=== PATIENT | male | born 1950 | race Caucasian/White ===

== ENCOUNTER 2017-07-31 11:24 | Inpatient (IN) ==
--- NOTE | 2017-07-31 12:22 | Orthopedic History & Physical ---
Date of Encounter: 07/31/17 Time of Encounter: 12:17 Assessment and Plan (1) Infection of shoulder Current visit: Yes Status: Acute The diagnosis and treatment plan were discussed with Vlad and his . His findings on his MRI and exam are concerning so we will admit him to the hospital for IV antibiotics and for emergent irrigation and debridement. I have spoken with infectious disease and they will see him in the hospital for antibiotic management. NPO currently. History of Present Illness Chief complaint: R shoulder infection HPI: Mr. Merino is a 67 year old male who had a right shoulder rotator cuff repair about 5 weeks ago. He was doing well up until 3 days ago when developed pain and swelling and erythema over the right shoulder anterior portal location. Findings were concerning for a shoulder abscess and so the wound was irrigated and debrided in the office. Cultures were taken and sent. Here for follow up today, wound continued to drain. The shoulder was first aspirated and then the patient was admitted for IV antibiotics and surgical management. MRI also performed today prior to surgery that showed findings concerning for septic joint. Patient denies any fevers, chills or constitutional symptoms. He has pain over the anterior portal site but denies any deep pain. Past Med Surg Social Fam HX - Past Medical History Medical history: other - Past Surgical History Surgical History: knee replacement, other - Social History Smoking Status: Current every day smoker Smokeless Tobacco Status: No Alcohol use: occasionally Drug use: none Medications and Allergies Meloxicam [Meloxicam] 15 mg PO DAILY 06/20/17 [History] 3 Allergy/AdvReac Type Severity Reaction Status Date / Time No Known Allergies Allergy Verified 06/20/17 07:31 All Systems Reviewed: A 10-system review of systems was performed and is negative for pertinent findings except as documented above in the HPI. Physical Exam - Constitutional General appearance IM: A&O X 3, no acute distress Exam: Consult Exam: Constitutional -Vitals reviewed -The patient is well developed and well nourished. -Mood is pleasant. -The patient is well groomed. Psychiatric -The patient is fully alert and oriented x 3. Respiratory: -Respiratory effort normal Abdomen: -Soft abdomen -Non tender -Non distended: Left upper extremity: -No deformities. The overlying skin is intact. No obvious signs of acute trauma. -No tenderness to palpation throughout. -No significant pain with passive motion of the shoulder, elbow, wrist, and fingers within the limits of the bed. -Able to make an "OK" sign, cross the index and long fingers, and extend the thumb. -Sensation grossly intact to light touch throughout the median, radial, and ulnar distributions. -Radial pulse is present; Fingers have good capillary refill. Right upper extremity: -Tenderness to palpation over the anterior portal site. Minimal surround erythema but with purulent drainage from the site. -No significant pain with passive short arc motion of the shoulder. -Able to make an "OK" sign, cross the index and long fingers, and extend the thumb. -Sensation grossly intact to light touch throughout the median, radial, and ulnar distributions. -Radial pulse is present; Fingers have good capillary refill. Left lower extremity: -No deformities. The overlying skin is intact. No obvious signs of acute trauma. -No tenderness to palpation throughout. -No pain with passive motion of the hip, knee, ankle, and toes within the limits of the bed. -No pain with axial loading of the thigh. -Able to dorsiflex and plantarflex the ankle and toes. -Sensation is grossly intact to light touch throughout the sural, saphenous, superficial peroneal, and deep peroneal distributions. -Toes have good capillary refill. Right lower extremity: -No deformities. The overlying skin is intact. No obvious signs of acute trauma. -No tenderness to palpation throughout. -No pain with passive motion of the hip, knee, ankle, and toes within the limits of the bed. -No pain with axial loading of the thigh. -Able to dorsiflex and plantarflex the ankle and toes. -Sensation is grossly intact to light touch throughout the sural, saphenous, superficial peroneal, and deep peroneal distributions. -Toes have good capillary refill. Results - Labs Labs: All other labs normal. - Diagnostic results Shoulder MRI: report reviewed, image reviewed (Findings concerning for septic joint with multiple areas of fluid loculation)
[2017-07-31] MEDS ORDERED: *HR* OxyCODONE Immed Rel 5 MG TABLET PO PRN ×3 (14:06→21:43)
[2017-07-31] MEDS ORDERED: traMADol 50 MG TABLET PO PRN ×2 (14:06→21:43)
[2017-07-31] MEDS ORDERED: *HR* HYDROcodone/Acet 5/325 mg TABLET PO PRN ×2 (14:06→21:43)
[2017-07-31] MEDS ORDERED: Naloxone 0.4 MG/ML INJ IVP PRN ×2 (14:06→21:43)
[2017-07-31] MEDS ORDERED: Acetaminophen 325 MG TABLET PO PRN ×2 (14:06→21:43)
[2017-07-31] MEDS ORDERED: 0.9 % Sodium Chloride 1,000 ML IVC SCH (14:15)
--- NOTE | 2017-07-31 15:05 | Infectious Disease Consult ---
Date of Encounter: 07/31/17 Time of Encounter: 14:59 Assessment and Plan (1) Septic arthritis of shoulder, right Status: Acute Assessment and plan: Location: Right shoulder. Causative organism unclear. Failed outpatient oral antibiotics. MRI of the right shoulder showed findings consistent with septic glenohumeral joint with possible pyomyositis/myositis and possible early osteomyelitis. Superficial wound cultures 07/29/17 is preliminarily negative. Status post right shoulder arthrocentesis 07/31/[address] Wilhelm in the office. 1 ml of fluid removed and sent for culture (aerobic and anaerobic). I called and spoke with the lab who states that since only 1ml was available, they will not be able to run cell count/differential on it. I spoke with Dr. Wilhelm who plans to take the patient to the OR tonight for washout of the joint. Clinically, the patient does not appear toxic. Check labs: CBC, BMP, ESR, and CRP. Check blood cultures x 2 sets now. Hold antibiotics for now until cultures are obtained intra-op. Recommend sending surgical cultures for aerobic and anaerobic cultures. Start Vancomycin IV post-op. Pharmacy to dose. Goal trough ~15. Start Cefepime 2 grams IV Q12H post-op. Duration of treatment depends on the clinical picture, but likely 6 weeks of IV antibiotics. Monitor renal function and for drug toxicity and dose-adjust antibiotics. Avoid the insertion of central venous access until blood cultures are negative x 48 hours. Qualifiers: Septic arthritis organism: due to unspecified organism Qualified Code(s): M00.9 - Pyogenic arthritis, unspecified (2) Status post rotator cuff repair Status: Acute Assessment and plan: Status post rotator cuff repair 06/20/[address] Wilhelm. Infectious Disease HPI - Data of Consult Patient: new to practice Consult date: 07/31/17 Requesting Physician: Yousuf Wilhelm MD Primary Care Provider: Manish Frausto, - Consult Narrative Reason for consult: Right shoulder infection History of present illness: Mr. Merino is a 67 year old male with no major medical problems. He was admitted to the hospital for right shoulder infection. We're consulted July 31 for antibiotic recommendations for right shoulder infection. Briefly, the patient is a 67-year-old male with past medical history as stated above. The patient sustained a fall back in May when he was hunting and had a rotator cuff repair. He was evaluated by Dr. Sahara Campbell for possible surgical intervention on June 17 and scheduled for surgery. On December 18, he underwent a right shoulder arthroscopic rotator cuff repair, right shoulder arthroscopic subacromial decompression, and right shoulder arthroscopic extensive debridement. Postoperatively, the patient did well until about 5 days ago when he noticed a knot at the incision site and there was some redness and warmth. He was evaluated by Dr. Sahara Campbell on the and there was noted be pus from the surgical site. He did bedside incision and drainage and obtained a culture which is currently pending. He started the patient on oral Keflex and Bactrim and instructed the patient come back to the office 2 days later. Earlier today, the patient was reevaluated by orthopedics was noted to not have much improvement. Dr. Sahara Campbell did aspirate the joint itself about 1 mL of fluid out and sent for culture. He did a stat MRI that showed findings consistent with septic glenohumeral joint with pyomyositis/myositis and early ostomy myelitis of the lateral head of the humerus. He opted to have the patient admitted for IV antibiotics and surgical intervention. We've been asked to evaluate and make further recommendations. During my exam today, the patient states that overall he feels well. He denies fevers, chills, or rigors. Denies headache, neck pain, or dizziness. Denies chest pain, shortness of breath, or cough. Denies nausea, vomiting, or diarrhea. Denies abdominal pain, appetite changes, or urinary complaints. Reports minimal pain in the right shoulder, worse with ROM. States the surgical wounds had all healed until 5 days ago with the anterior incision became red and warm and it has been draining since Dr. Wilhelm did the I & D in the office. Denies pain in his back or extremities. Denies oral thrush or other skin lesions. The patient lives at home with his . 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 He reports smoking cigars, but denies alcohol or illicit drug use. CC: Yousuf Wilhelm MD Past Med Surg Social Fam HX - Past Medical History Attestation: Yes The following information was validated with the patient. Source: patient, old records reviewed, nursing notes reviewed Medical history: other - Past Surgical History Surgical History: knee replacement, other - Social History Smoking Status: Current every day smoker Smokeless Tobacco Status: No Alcohol use: occasionally Drug use: none - Family History Father Hx Family Cardiac Disorders: Yes Mother Hx Family Neurologic Disorders: Yes (EPILEPSY) Infectious Disease-CN:Meds Meloxicam [Meloxicam] 15 mg PO DAILY 06/20/17 [History] Cephalexin [Keflex] 500 mg PO BID 07/31/17 [History] Docusate [Colace] 100 mg PO DAILY PRN 07/31/17 [History] HYDROcodone/Acet 5/325 mg [[place] 5-325 mg] 1 - 2 tab PO Q6H PRN 07/31/17 [ History] Ondansetron HCl [Zofran] 4 mg PO Q6H PRN 07/31/17 [History] Sulfamethoxazole/Trimeth DS [Bactrim DS] 1 each PO BID 07/31/17 [History] 3 Allergy/AdvReac Type Severity Reaction Status Date / Time No Known Allergies Allergy Verified 06/20/17 07:31 All systems: reviewed and no additional remarkable complaints except as stated Infectious Disease CN: Results - Labs CBC & Chem 7: 07/31/17 16:07 07/31/17 16:07 Consult Discharge Plan - Plan Referrals: Manish Frausto DO [Primary Care Provider] - - Attending Attestation I examined this patient and my medical decision-making was reviewed with the Resident Physician. I agree with the documented findings, disposition and treatment plan as described except to the extent set forth below. This is an addendum to original report dictated by Kaye Barrientos CNP. Please refer to Sonia tillman for full detail. Patient is 67-year-old gentleman who apparently underwent rotator cuff repair on 06/20/2017. Postop initially he did well but around patient had a knot that was red and warm on his right shoulder. Patient was seen on July 29 and orthopedics office and they I and D the not. Apparently there was purulence and cultures were obtained. Patient was started on combination of Keflex and Bactrim. Patient underwent an MRI of the shoulder which showed glenohumeral joint septic arthritis and myositis and osteomyelitis of the humeral head. Patient was called brought in to the operative room and admitted for I&D. The cultures obtained from 07/29/17 have been no growth to date. Patient is about to go to the surgery. At this time no antibiotics needed. Preop antibiotics per protocol. Post surgery will start the patient on empiric vancomycin and cefepime. Goal vancomycin trough around 15. Await Intra-Op cultures to finalize. Discussed with pharmacy staff and told him to start antibiotics after surgery Monitor labs and for drug toxicity If this osteomyelitis patient likely would need long-term antibiotics maybe 6-8 weeks. Once cultures are finalized and are negative in the blood for 48 hours at least we will need a PICC line placement.
[2017-07-31 16:23] LABS: Basophils # 0.1 K/mcL (0.0-0.2); Basophils % 0.6 %; Eosinophils # 0.2 K/mcL (0.0-0.6); Eosinophils % 2.7 %; Immature Granulocytes % 0.6 % (0-4); Lymphocytes # 2.3 K/mcL (0.6-4.6); Lymphocytes % 28.8 %; Mean Corpuscular HGB Conc 32.6 g/dL (31.6-35.5); Mean Corpuscular Hemoglobin 29.1 pg (28.0-33.3); Mean Corpuscular Volume 89.4 fL (83.0-100.0); Mean Platelet Volume 10.4 fL (9.4-12.4); Monocytes # 0.6 K/mcL (0.0-1.3); Monocytes % 7.2 %; Neutrophils # 4.8 K/mcL (1.6-8.9); Platelet Count 376 K/mcL (140-400); Red Blood Count 4.81 M/mcL (4.19-5.50); Red Cell Distribution Width 12.7 % (11.5-14.5); Segmented Neutrophils % 60.1 %
[2017-07-31 16:44] LABS: BUN/Creatinine Ratio 24 (6-26); Blood Urea Nitrogen 21 mg/dL (8-23); C-Reactive Protein 75 mg/L (Less than 10); Calcium 9.5 mg/dL (8.6-10.3); Carbon Dioxide 23 mEq/L (23-29); Chloride 105 mEq/L (98-107); Glucose 86 mg/dL (70-105); Osmolality,Calculated 282 (280-300); Potassium 4.5 mEq/L (3.5-5.1); Sodium 135 mEq/L (136-145); eGFR For African Americans > 60 (> 60); eGFR For Non-African Americans > 60 (> 60)
--- NOTE | 2017-07-31 18:28 | Anesthesia Evaluation PreOp ---
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 Significant HX Anesthesia History: No Prior Anesthetic Complications, Past Anesthesia (R shoulder) Alcohol Use: occasionally Drug use: none Medications and Allergies Meloxicam [Meloxicam] 15 mg PO DAILY 06/20/17 [History] Cephalexin [Keflex] 500 mg PO BID 07/31/17 [History] Docusate [Colace] 100 mg PO DAILY PRN 07/31/17 [History] HYDROcodone/Acet 5/325 mg [[place] 5-325 mg] 1 - 2 tab PO Q6H PRN 07/31/17 [ History] Ondansetron HCl [Zofran] 4 mg PO Q6H PRN 07/31/17 [History] Sulfamethoxazole/Trimeth DS [Bactrim DS] 1 each PO BID 07/31/17 [History] 3 Allergy/AdvReac Type Severity Reaction Status Date / Time No Known Allergies Allergy Verified 06/20/17 07:31 - Meds/Allergy Pre-op Review Medications Reviewed: Yes Allergies Reviewed: Yes Beta Blockers on Current Med List: No Anesthesia Results - Labs 07/31/17 16:07 07/31/17 16:07 - Imaging EKG: report reviewed ( Interpretive Statements SINUS RHYTHM MINIMAL VOLTAGE CRITERIA FOR LVH, CONSIDER NORMAL VARIANT PROBABLE INFERIOR MYOCARDIAL INFARCTION, OF INDETERMINATE AGE Electronically Signed On 06-20-2017 12:08:02 EST by Hong Perdomo MD) Anesthesia Exam Vital Signs/O2 Sat, Most Current Temp Pulse Resp BP Pulse Ox 97.8 F 88 16 123/75 97 07/31/17 15:04 07/31/17 15:04 07/31/17 15:04 07/31/17 15:04 07/31/17 15:04 Height: 1.73m Weight: 103kg NPO (# of Hours): >8 - HEENT Pupil (Motor): Pupils equal, EOMI Mallampati: III Teeth: Normal Oral Opening: Greater than 3 - BOILERS INSPECTOR LOC: Oriented BOILERS INSPECTOR Motor: Normal RUE, Normal LUE, Normal RLE, Normal LLE, Normal Face BOILERS INSPECTOR Sensory: Normal: RUE, LUE, RLE, LLE, Face - Cardiac Rhythm: Regular - Pulmonary Breath Sounds: bilateral Clear Respiratory Effort: Symmetrical Anesthesia Assess/Plan ASA Score: 2 Modified Jinny Scale for Level of Consciousness: Cooperative, oriented, and tranquil Anesthetic Plan: General (r/b/a discussed, questions answered, consent obtained) Monitoring Plan: Standard Monitors Recovery Plan: PACU
[2017-07-31] MEDS ORDERED: *HR* Propofol 200 MG/20 ML VIAL IVP ONE ×2 (18:59→19:35)
[2017-07-31] MEDS ORDERED: *HR* Midazolam HCl 2 MG/2 ML VIAL ONE (18:59)
[2017-07-31] MEDS ORDERED: *HR* Rocuronium Bromide 50 MG/5 ML VIAL ONE (18:59)
[2017-07-31] MEDS ORDERED: Ondansetron 4 MG/2 ML VIAL ONE (18:59)
[2017-07-31] MEDS ORDERED: *HR* Succinylcholine 200 MG/10 ML VIAL IVP ONE (18:59)
[2017-07-31] MEDS ORDERED: *HR* FentaNYL (PF) 100 MCG/2 ML VIAL ONE (18:59)
[2017-07-31] MEDS ORDERED: Lidocaine -MPF 2% 2 ML VIAL ONE (18:59)
[2017-07-31] MEDS ORDERED: Dexamethasone 4 MG/ML VIAL ONE (18:59)
[2017-07-31] MEDS ORDERED: Vancomycin 1,000 MG VIAL ONE (19:17)
[2017-07-31] MEDS ORDERED: *HR* PHENYLEPHRINE 1,000 MCG/10 ML SYRINGE IVP ONE (19:30)
[2017-07-31] MEDS ORDERED: Propofol 500 MG/50 ML INFUS..BTL ONE (19:34)
[2017-07-31] MEDS ORDERED: Ketamine *HR* 500 MG/10 ML MDV ONE (19:45)
[2017-07-31] MEDS ORDERED: EPHEDrine 50 MG/ML VIAL ONE (19:48)
[2017-07-31] MEDS ORDERED: Ketorolac 30 MG/ML VIAL ONE (20:00)
[2017-07-31] MEDS ORDERED: *HR* Promethazine 25 MG/ML VIAL IVP PRN (20:13)
[2017-07-31] MEDS ORDERED: Albuterol 2.5 MG/3 ML NEBULIZER IH ONE ×2 (20:13→21:43)
[2017-07-31] MEDS ORDERED: Cefepime HCl 2,000 MG in Water for inj. (sterile) 20 ML 20 ML IVPB SCH (21:00)
--- NOTE | 2017-07-31 21:13 | Orthopedic Operative Note ---
Date of procedure: 07/31/17 Pre-op diagnosis: Right shoulder septic arthritis Post-op diagnosis: same Procedure: INDICATIONS: This is a 67-year-old male who had a right shoulder arthroscopic rotator cuff repair about 5 weeks ago. 3 days ago he noticed swelling and redness over his anterior portal site. He denied any deep pain in the shoulder at that point. He was seen in the office the next day and had an abscess over his anterior portal site. He had no pain with short arc motion of the shoulder. At that point a bedside irrigation and debridement was performed of the right shoulder abscess. He followed up today for a wound check and still had drainage from the wound. A stat MRI was performed to evaluate for further loculations and the patient was scheduled for urgent irrigation and debridement of the right shoulder. The risks and benefits of the procedure were fully explained. Those risks include but are not limited to, infection, neurovascular injury, continued pain, arthritis, stiffness, further injury, need for further surgery, DVT, PE, loss of limb, and loss of life. The patient understood all of these risks and wished to proceed. Informed consent was obtained. OPERATIVE REPORT: The patient was identified in the holding area. The right upper extremity was marked, the patient was taken to the operating room and placed in the beachchair position. All bony prominences were well padded. The anesthesiologist performed successful general anesthetic for the remainder of the case. A surgical time out protocol was then performed. There is some purulent drainage from the anterior portal site. This was cultured. After the cultures were taken, IV vancomycin was given. The wound was incised proximally and distally. At that point a hemostat was used to break up loculations in all directions from the anterior portal site. No further gross purulence was expressed. We then began our irrigation and debridement of the glenohumeral joint. The scope was placed in the joint via posterior portal. There was no gross purulence. There was erythematous and frayed tissue throughout the glenoid humeral joint. Chondral surface of both the humerus and glenoid was intact. Shaver was introduced through the anterior portal and debridement was performed of all synovitic material within the shoulder joint. The subscap and infraspinatus were both intact. We then went up into the subacromial space. His supraspinatus repair was no longer intact supraspinatus was retracted off the bone about 1 cm. The anchors were loose within the bone and so these were removed with a grasper. The anchor sites had some cavitation under the intact humeral cartilage. FiberWire suture was also removed from the supraspinatus. Through a lateral portal we then thoroughly debrided all erythematous tissue in the subacromial space. Again there is no gross purulence in this area. A total of 18 L of fluid were run through the joint. Following this the scope was removed from the joint the portals were closed with 3-0 nylon. Another 3 L of normal saline were run through the anterior portal where his infection had began. A wound VAC was then placed over the anterior incision. Sterile dressing was placed and patient was awoken by anesthesia and taken to PACU in stable condition. There are no complications. Postop plan: IV antibiotics for 6 weeks per ID. We will plan for repeat I and D tomorrow. Complications: none Anesthesia: GETA Surgeon: Yousuf Wilhelm Was there an esol teacher assistant present: No Estimated blood loss (cc): 50 Condition: stable Disposition: PACU
--- NOTE | 2017-07-31 22:03 | Anesthesia Evaluation Post Op ---
Date of Encounter: 07/31/17 Time of Encounter: 22:02 - Vital Signs Vital Signs: Last Vital Signs Temp 97.9 F 07/31/17 21:53 Pulse 102 07/31/17 21:53 Resp 16 07/31/17 21:53 BP 139/83 07/31/17 21:53 Pulse Ox 97 07/31/17 21:53 - Lungs Lungs: Clear Ascult./Percussion - Airway Airway: Non-obstructed - Cardiovascular Regular Rate - Mental Status Mental Status: Alert & Oriented, Answers Appropriately - Pain Pain Scale: 2 - Nausea Vomiting Nausea Vomiting: Not Present - Hydration Hydration: NPO - Discharge PostOp Status: Transfer Patient to floor
[2017-07-31] MEDS: 0.9 % Sodium Chloride 1,000 ML IVC SCH (22:06)
--- NOTE | 2017-08-01 07:52 | Orthopedics Progress Note ---
Date of Encounter: 08/01/17 Time of Encounter: 07:51 - Assessment and Plan (1) Infection of shoulder Current Visit: Yes Status: Acute Subjective Interval history: S: Pain well controlled. Denies f/c/ns. O: AFVSS GEN: NAD, AAOx3 RUE: Inc c/d/i with wound vac in place No purulent drainage from wound vac No surrounding erythema No pain with short arc ROM A/P: 67 yo M POD#1 s/p R shoulder arthroscopic and open I&D for post op wound infection -Plan for repeat I&D today -Continue IV Atbx per ID, appreciate ID recs -NPO, consent signed -PICC line when ctx negative Objective Vital signs: Vital Signs Temp Pulse Resp BP Pulse Ox 08/01/17 07:24 97.7 F 83 17 101/65 94 08/01/17 04:03 97.9 F 108 18 121/70 95 08/01/17 01:02 97.9 F 115 20 149/78 96 08/01/17 00:25 98.1 F 76 16 129/78 98 07/31/17 23:25 97.9 F 91 16 140/81 07/31/17 22:25 97.9 F 88 16 130/81 96 07/31/17 21:59 21 98 07/31/17 21:55 97.6 F 95 16 144/84 98 07/31/17 21:25 97.9 F 102 16 139/83 97 07/31/17 21:20 97.6 F 96 16 145/78 94 07/31/17 21:10 96 16 126/85 93 07/31/17 21:00 93 16 131/71 96 07/31/17 20:50 98 F 101 16 130/100 95 07/31/17 15:04 97.8 F 88 16 123/75 97 Intake and Output 07/31/17 07/31/17 08/01/17 15:59 23:59 07:59 Output Total 450 / 450 450 / 450 Balance -450 / -450 -450 / -450 Output: Urine 400 / 400 400 / 400 Estimated Blood Loss 50 / 50 Wound Drainage 50 / 50 Right Shoulder 25 / 25 Right Upper Shoulder 25 / 25 Other: # Voids 1 Weight 103.873 kg Incision: clean and dry (wound vac in place. No surrounding erythema) - Labs CBC & BMP: 02/15/18 16:07 07/31/17 16:07 Labs: Abnormal lab results ESR 79 mm/hr (0-10) H 07/31/17 16:07 Sodium 135 mEq/L (136-145) L 07/31/17 16:07 C-Reactive Protein 75 mg/L (Less than 10) H 07/31/17 16:07 - VTE Documentation of Mechanical Device: Intermittent pneumatic compression device Consult Discharge Plan - Plan Referrals: Manish Frausto DO [Primary Care Provider] -
[2017-08-01] MEDS ORDERED: Cefepime HCl 2,000 MG in Water for inj. (sterile) 20 ML 20 ML IVPB SCH (09:00)
[2017-08-01] MEDS: 0.9 % Sodium Chloride 1,000 ML IVC SCH (12:59)
--- NOTE | 2017-08-01 16:29 | History & Physical Report ---
Date of Encounter: 08/01/17 Time of Encounter: 16:29 24 Hour HP Update - Instructions Instructions: If the History and Physical is less than 30 days old and was completed prior to A.M. admission and or procedure and has NOT been updated on calendar day of procedure please complete this update prior to performing procedure. - Update Patient reports changes in Medical Condition: No Changes in examination, assessment, or condition: No Changes in Medication: No Preop tests/diagnostics Reviewed: Yes Surgery Remains Indicated: Yes Consent for Planned Operative Procedure(s) Verified: Yes
--- NOTE | 2017-08-01 16:44 | Anesthesia Evaluation PreOp ---
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 Any Significant HX Anesthesia History: No Prior Anesthetic Complications Alcohol Use: occasionally Drug use: none Medications and Allergies Meloxicam [Meloxicam] 15 mg PO DAILY 06/20/17 [History] Cephalexin [Keflex] 500 mg PO BID 07/31/17 [History] Docusate [Colace] 100 mg PO DAILY PRN 07/31/17 [History] HYDROcodone/Acet 5/325 mg [[place] 5-325 mg] 1 - 2 tab PO Q6H PRN 07/31/17 [ History] Ondansetron HCl [Zofran] 4 mg PO Q6H PRN 07/31/17 [History] Sulfamethoxazole/Trimeth DS [Bactrim DS] 1 each PO BID 07/31/17 [History] 3 Allergy/AdvReac Type Severity Reaction Status Date / Time No Known Allergies Allergy Verified 06/20/17 07:31 - Meds/Allergy Pre-op Review Medications Reviewed: Yes Allergies Reviewed: Yes (NKDA) Beta Blockers on Current Med List: No Anesthesia Results - Labs 07/31/17 16:07 07/31/17 16:07 - Imaging EKG: report reviewed Anesthesia Exam Vital Signs/O2 Sat/Glucose, Most Recent Temp Pulse Resp BP Pulse Ox 97.7 F 83 17 101/65 94 08/01/17 07:24 08/01/17 07:24 08/01/17 07:24 08/01/17 07:24 08/01/17 07:24 - HEENT Pupil (Motor): Pupils equal Mallampati: III Teeth: Normal Oral Opening: Greater than 3 - CREDIT PROCESSOR CREDIT PROCESSOR Motor: Normal RUE, Normal LUE, Normal RLE, Normal LLE, Normal Face CREDIT PROCESSOR Sensory: Normal: RUE, LUE, RLE, LLE, Face - Cardiac Rhythm: Regular - Pulmonary Breath Sounds: bilateral Clear Anesthesia Assess/Plan ASA Score: 2 Modified [place] Scale for Level of Consciousness: Cooperative, oriented, and tranquil Anesthetic Plan: General Monitoring Plan: Standard Monitors Recovery Plan: PACU
[2017-08-01] MEDS ORDERED: MORPHINE SUL Oral CONC 10 MG/0.5 ML ORAL.SYG SL PRN ×2 (16:51→19:05)
[2017-08-01] MEDS ORDERED: Ondansetron 4 MG/2 ML VIAL IVP ONE ×2 (16:51→19:05)
[2017-08-01] MEDS ORDERED: *HR* FentaNYL (PF) 100 MCG/2 ML VIAL IVP PRN (16:51)
[2017-08-01] MEDS ORDERED: *HR* OxyCODONE Immed Rel 5 MG TABLET PO PRN ×3 (16:51→19:05)
[2017-08-01] MEDS ORDERED: *HR* Labetalol 20 MG/4 ML SYRINGE IVP PRN (16:51)
[2017-08-01] MEDS ORDERED: Vancomycin 1,000 MG VIAL ONE (17:09)
[2017-08-01] MEDS ORDERED: *HR* Morphine 10 MG/ML VIAL ONE (17:51)
[2017-08-01] MEDS ORDERED: *HR* Labetalol 100 MG/20 ML MDV IVP PRN ×2 (18:30→19:05)
--- NOTE | 2017-08-01 18:44 | Orthopedic Operative Note ---
Date of procedure: 08/01/17 Pre-op diagnosis: R shoulder septic arthritis Post-op diagnosis: same Procedure: 1. R shoulder arthroscopic extensive irrigation and debridement 2. R shoulder open wound irrigation and debridement with placement of incisional wound vac INDICATIONS: This is a 67-year-old male who had a right shoulder arthroscopic rotator cuff repair about 5 weeks ago. 5 days ago he developed swelling and redness over his anterior portal site. Denied any deep pain or pain with shoulder motion. He had an abscess over the anterior shoulder debrided with a bedside irrigation and debridement. He was still having drainage from the wound at follow up yesterday and underwent an urgent irrigation and debridement of the right shoulder joint and wound with wound vac placement yesterday. MRI findings were concerning for a septic joint and osteomyelitis of the lateral humeral head. Wound cultures and shoulder aspirate cultures have been sent and thus far have been negative. Repeat shoulder irrigation and debridement was scheduled for today. The risks and benefits of the procedure were fully explained. Those risks include but are not limited to, infection, neurovascular injury, continued pain, arthritis, stiffness, further injury, need for further surgery, DVT, PE, loss of limb, and loss of life. The patient understood all of these risks and wished to proceed. Informed consent was obtained. OPERATIVE REPORT: The patient was identified in the holding area. The right upper extremity was marked, the patient was taken to the operating room and placed in the beachchair position. All bony prominences were well padded. The anesthesiologist performed successful general anesthetic for the remainder of the case. A surgical time out protocol was then performed. There was no purulent drainage from the anterior portal site after wound vac removal. A hemostat was used to break up loculations in all directions from the anterior portal site. No gross purulence was expressed. We then began our irrigation and debridement of the glenohumeral joint. The scope was placed in the joint via posterior portal. There was no gross purulence. There was erythematous tissue throughout the glenoid humeral joint. Chondral surface of both the humerus and glenoid was intact. Shaver was introduced through the anterior portal and debridement was performed of remaining synovitic material within the shoulder joint. The subscap and infraspinatus were both intact. We then went up into the subacromial space. Supraspinatus is no longer intact. There is some cavitation under the intact humeral cartilage. Through a lateral portal we then thoroughly debrided the erythematous tissue in the subacromial space. Again there is no gross purulence in this area. A total of 10 L of fluid were run through the joint. Following this the scope was removed from the joint the portals were closed with 3-0 nylon. Another 3 L of normal saline were run through the anterior portal. This was closed with 3-0 nylon and then a incisional wound VAC was then placed over the anterior incision. Sterile dressing was placed and patient was awoken by anesthesia and taken to PACU in stable condition. There are no complications. Postop plan: IV antibiotics for 6 weeks per ID. No further surgery planned. Complications: none Anesthesia: GETA Surgeon: Yousuf Wilhelm Was there an agency sales management assistant present: No Estimated blood loss (cc): 5 Condition: stable Disposition: PACU
[2017-08-01] MEDS ORDERED: traMADol 50 MG TABLET PO PRN (19:05)
[2017-08-01] MEDS ORDERED: Naloxone 0.4 MG/ML INJ IVP PRN (19:05)
[2017-08-01] MEDS ORDERED: Acetaminophen 325 MG TABLET PO PRN (19:05)
--- NOTE | 2017-08-01 19:18 | Anesthesia Evaluation Post Op ---
Date of Encounter: 08/01/17 Time of Encounter: 19:00 - Vital Signs Vital Signs: Last Vital Signs Temp 97.5 F L 08/01/17 19:05 Pulse 81 08/01/17 19:05 Resp 16 08/01/17 19:05 BP 151/89 08/01/17 19:05 Pulse Ox 95 08/01/17 19:05 - Lungs Lungs: Clear Ascult./Percussion - Airway Airway: Non-obstructed - Cardiovascular Regular Rate - Mental Status Mental Status: Alert & Oriented, Answers Appropriately - Pain Pain Scale: 1 - Nausea Vomiting Nausea Vomiting: Not Present - Hydration Hydration: Ice chips - Discharge PostOp Status: Transfer Patient to floor
[2017-08-01] MEDS: Cefepime HCl 2,000 MG in Water for inj. (sterile) 20 ML 20 ML IVPB SCH (20:48)
[2017-08-01] MEDS: *HR* HYDROcodone/Acet 5/325 mg TABLET PO PRN (21:30)
[2017-08-02] MEDS: *HR* HYDROcodone/Acet 5/325 mg TABLET PO PRN (03:41)
--- NOTE | 2017-08-02 06:57 | Orthopedics Progress Note ---
Date of Encounter: 08/02/17 Time of Encounter: 06:56 Subjective Interval history: Patient was seen this morning doing well without complaints. Afebrile vital signs stable. Operative extremity: Neurovascularly intact wound VAC intact Dressing clean dry and intact Calves nontender Assessment and plan: Continue with postoperative care Objective Vital signs: Vital Signs Temp Pulse Resp BP Pulse Ox 08/02/17 04:54 98.3 F 76 14 112/58 93 08/01/17 19:05 97.5 F L 81 16 151/89 95 08/01/17 18:40 98.0 F 85 16 145/91 94 08/01/17 18:30 88 16 143/92 93 08/01/17 18:20 83 18 141/94 95 08/01/17 18:10 99.4 F 84 16 146/99 92 08/01/17 07:24 97.7 F 83 17 101/65 94 Intake and Output 08/01/17 08/01/17 08/02/17 15:59 23:59 07:59 Intake Total 1000 / 1000 500 / 500 Output Total 25 / 25 0 / 0 Balance 975 / 975 500 / 500 Intake: IV Fluids 1000 / 1000 500 / 500 0.9 % Sodium Chloride 1,000 ML 1000 / 1000 @ 75 mls/hr IVC .[id number] [facility] Rx #:[id number] Vancocin 1,500 MG In 0.9 % 500 / 500 Sodium Chloride 250 ML @ 167 mls/hr IVPB Q12H [facility] Rx#: [id number] Output: Wound Drainage 25 / 25 0 / 0 Right Upper Shoulder 25 / 25 0 / 0 - Labs CBC & BMP: 07/31/17 16:07 07/31/17 16:07 Labs: Abnormal lab results ESR 79 mm/hr (0-10) H 07/31/17 16:07 Sodium 135 mEq/L (136-145) L 07/31/17 16:07 C-Reactive Protein 75 mg/L (Less than 10) H 07/31/17 16:07 - VTE Documentation of Mechanical Device: Intermittent pneumatic compression device Consult Discharge Plan - Plan Referrals: Manish Frausto DO [Primary Care Provider] -
--- NOTE | 2017-08-02 08:38 | Orthopedics Progress Note ---
Date of Encounter: 08/02/17 Time of Encounter: 08:36 - Assessment and Plan (1) Infection of shoulder Current Visit: Yes Status: Acute Subjective Interval history: S: Pain well controlled. Denies f/c/ns. O: AFVSS, Wound and shoulder joint Ctx NGTD GEN: NAD, AAOx3 RUE: Inc c/d/i with wound vac in place No purulent drainage from wound vac, minimal drainage No surrounding erythema No pain with short arc ROM A/P: 67 yo M POD#1/2 s/p multiple R shoulder arthroscopic and open I&D for post op wound infection -No plan for repeat I&D -Continue IV Atbx per ID, appreciate ID recs -PICC line when ctx negative -Social work working on Home health for home antibiotic therapy and wound vac management -PT for R shoulder - AROM and PROM as tolerated Objective Vital signs: Vital Signs Temp Pulse Resp BP Pulse Ox 08/02/17 07:32 97.9 F 74 16 108/65 93 08/02/17 04:54 98.3 F 76 14 112/58 93 08/01/17 19:05 97.5 F L 81 16 151/89 95 08/01/17 18:40 98.0 F 85 16 145/91 94 08/01/17 18:30 88 16 143/92 93 08/01/17 18:20 83 18 141/94 95 08/01/17 18:10 99.4 F 84 16 146/99 92 Intake and Output 08/01/17 08/02/17 08/02/17 23:59 07:59 15:59 Intake Total 500 / 500 Output Total 0 / 0 Balance 500 / 500 Intake: IV Fluids 500 / 500 Vancocin 1,500 MG In 0.9 % 500 / 500 Sodium Chloride 250 ML @ 167 mls/hr IVPB Q12H [facility] Rx#: [id number] Output: Wound Drainage 0 / 0 Right Upper Shoulder 0 / 0 - Labs CBC & BMP: 07/31/17 16:07 07/31/17 16:07 Labs: Abnormal lab results ESR 79 mm/hr (0-10) H 07/31/17 16:07 Sodium 135 mEq/L (136-145) L 07/31/17 16:07 C-Reactive Protein 75 mg/L (Less than 10) H 07/31/17 16:07 - VTE Documentation of Mechanical Device: Intermittent pneumatic compression device Consult Discharge Plan - Plan Referrals: Manish Frausto DO [Primary Care Provider] -
[2017-08-02] MEDS: Cefepime HCl 2,000 MG in Water for inj. (sterile) 20 ML 20 ML IVPB SCH ×2 (08:53→20:54)
[2017-08-02 16:42] LABS: BUN/Creatinine Ratio 26 (6-26); Blood Urea Nitrogen 22 mg/dL (8-23); eGFR For African Americans > 60 (> 60); eGFR For Non-African Americans > 60 (> 60)
--- NOTE | 2017-08-03 06:28 | Orthopedics Progress Note ---
Date of Encounter: 08/03/17 Time of Encounter: 06:28 Subjective Interval history: Patient was seen this morning doing well without complaints. Afebrile vital signs stable. Operative extremity: Neurovascularly intact wound VAC intact Dressing clean dry and intact Calves nontender Assessment and plan: Continue with postoperative care, wound vac intact, NGTD on cultures Objective Vital signs: Vital Signs Temp Pulse Resp BP Pulse Ox 08/03/17 00:15 97.7 F 89 18 132/77 93 08/02/17 19:41 97.9 F 79 16 117/65 94 08/02/17 15:26 97.9 F 80 16 116/74 93 08/02/17 11:30 97.7 F 66 16 120/71 93 08/02/17 07:32 97.9 F 74 16 108/65 93 Intake and Output 08/02/17 08/02/17 08/03/17 15:59 23:59 07:59 Intake Total 1010 / 1010 270 / 270 300 / 300 Output Total 0 / 0 0 / 0 0 / 0 Balance 1010 / 1010 270 / 270 300 / 300 Intake: IV Fluids 290 / 290 270 / 270 Maxipime 2,000 MG In Water for 40 / 40 20 / 20 inj. (sterile) 20 ML @ 300 mls/ hr IVPB Q12H [facility] Rx#:[id number] Vancocin 1,500 MG In 0.9 % 250 / 250 250 / 250 Sodium Chloride 250 ML @ 167 mls/hr IVPB Q12H [facility] Rx#: [id number] Oral 720 / 720 300 / 300 Output: Wound Drainage 0 / 0 0 / 0 0 / 0 Right Shoulder 0 / 0 0 / 0 0 / 0 Other: Meal Lunch Percent of Meal Consumed 95% # Voids 1 - Labs CBC & BMP: 07/31/17 16:07 08/02/17 16:19 Labs: Abnormal lab results ESR 79 mm/hr (0-10) H 07/31/17 16:07 Sodium 135 mEq/L (136-145) L 07/31/17 16:07 C-Reactive Protein 75 mg/L (Less than 10) H 07/31/17 16:07 - VTE Documentation of Mechanical Device: Graduated compression elastic hosiery Consult Discharge Plan - Plan Referrals: Manish Frausto DO [Primary Care Provider] -
--- NOTE | 2017-08-03 07:12 | Orthopedics Progress Note ---
Date of Encounter: 08/03/17 Time of Encounter: 07:10 - Assessment and Plan (1) Infection of shoulder Current Visit: Yes Status: Acute Subjective Interval history: S: Pain well controlled. Denies f/c/ns. O: AFVSS, Wound and shoulder joint Ctx NGTD GEN: NAD, AAOx3 RUE: Inc c/d/i with wound vac in place No purulent drainage from wound vac, minimal drainage No surrounding erythema No pain with short arc ROM A/P: 67 yo M POD#2/3 s/p multiple R shoulder arthroscopic and open I&D for post op wound infection -No plan for repeat I&D -Continue IV Atbx per ID, appreciate ID recs -PICC line tomorrow -Social work working on Home health for home antibiotic therapy and wound vac management -PT for R shoulder - AROM and PROM as tolerated -Ambulate in hallway Objective Vital signs: Vital Signs Temp Pulse Resp BP Pulse Ox 08/03/17 00:15 97.7 F 89 18 132/77 93 08/02/17 19:41 97.9 F 79 16 117/65 94 08/02/17 15:26 97.9 F 80 16 116/74 93 08/02/17 11:30 97.7 F 66 16 120/71 93 08/02/17 07:32 97.9 F 74 16 108/65 93 Intake and Output 08/02/17 08/02/17 08/03/17 15:59 23:59 07:59 Intake Total 1010 / 1010 270 / 270 300 / 300 Output Total 0 / 0 0 / 0 0 / 0 Balance 1010 / 1010 270 / 270 300 / 300 Intake: IV Fluids 290 / 290 270 / 270 Maxipime 2,000 MG In Water for 40 / 40 20 / 20 inj. (sterile) 20 ML @ 300 mls/ hr IVPB Q12H [facility] Rx#:[id number] Vancocin 1,500 MG In 0.9 % 250 / 250 250 / 250 Sodium Chloride 250 ML @ 167 mls/hr IVPB Q12H [facility] Rx#: [id number] Oral 720 / 720 300 / 300 Output: Wound Drainage 0 / 0 0 / 0 0 / 0 Right Shoulder 0 / 0 0 / 0 0 / 0 Other: Meal Lunch Percent of Meal Consumed 95% # Voids 1 - Labs CBC & BMP: 07/31/17 16:07 08/02/17 16:19 Labs: Abnormal lab results ESR 79 mm/hr (0-10) H 07/31/17 16:07 Sodium 135 mEq/L (136-145) L 07/31/17 16:07 C-Reactive Protein 75 mg/L (Less than 10) H 07/31/17 16:07 - VTE Documentation of Mechanical Device: Graduated compression elastic hosiery Consult Discharge Plan - Plan Referrals: Manish Frausto DO [Primary Care Provider] -
[2017-08-03] MEDS: Cefepime HCl 2,000 MG in Water for inj. (sterile) 20 ML 20 ML IVPB SCH ×2 (08:46→21:42)
--- NOTE | 2017-08-04 07:27 | Physician Discharge Referral ---
Home Health/Hosp Referral Info Transfer to: Home Health - Diagnosis (1) Infection of shoulder Priority: Primary Status: Acute - Respiratory Orders Smoking Cessation: Smoking cessation has been advised. For more information, call the [employer] Quit Line at 4-424-XCJC-NOW. - Dressing/Wound Care Site: Right shoulder Type of Dressing/Treatments w/Frequency: Change incisional wound vac over anterior shoulder MWF. Daily dry dressing changes over posterior and lateral portal sites - Diet/Nutrition Diet/Nutrition Orders: Regular - Activity Activity Orders: Up ad cindy - Services Needed Following services are medically necessary services: Home Health Aide, Physical Therapy Home Care Orders: IV antibiotic administration through PICC line Range of motion and strengthening as tolerated right shoulder - Transfer Medications Home Medications: Meloxicam [Meloxicam] 15 mg PO DAILY 06/20/17 [History] Cephalexin [Keflex] 500 mg PO BID 07/31/17 [History] Docusate [Colace] 100 mg PO DAILY PRN 07/31/17 [History] HYDROcodone/Acet 5/325 mg [[place] 5-325 mg] 1 - 2 tab PO Q6H PRN 07/31/17 [ History] Ondansetron HCl [Zofran] 4 mg PO Q6H PRN 07/31/17 [History] Sulfamethoxazole/Trimeth DS [Bactrim DS] 1 each PO BID 07/31/17 [History] Allergies/Adverse Reactions: 3 Allergy/AdvReac Type Severity Reaction Status Date / Time No Known Allergies Allergy Verified 06/20/17 07:31 Certification: Further, I certify that my clinical findings support that this patient is homebound (i.e. absences from home require considerable and taxing effort and are for medical reasons or scientology services or infrequently or short duration when for other reasons) because: Homebound Reason: Patient requires assistance of a person or device to safely leave home Attestation: My signature below is to certify that this patient is under my care and that I, or nurse practitioner, or a physician's fws faculty assistant working with me, has a face-to -face encounter with this patient.
--- NOTE | 2017-08-04 07:45 | Orthopedics Progress Note ---
Date of Encounter: 08/04/17 Time of Encounter: 07:43 - Assessment and Plan (1) Infection of shoulder Current Visit: Yes Status: Acute Subjective Interval history: S: Pain well controlled. Denies f/c/ns. O: AFVSS, Wound and shoulder joint Ctx NGTD GEN: NAD, AAOx3 RUE: Inc c/d/i with wound vac in place No purulent drainage from wound vac, minimal drainage No surrounding erythema No pain with short arc ROM A/P: 67 yo M POD#3/4 s/p multiple R shoulder arthroscopic and open I&D for post op wound infection -No plan for repeat I&D -Continue IV Atbx per ID, appreciate ID recs -PICC line today -Social work working on Home health for home antibiotic therapy and wound vac management, wound vac changes MWF -PT for R shoulder - AROM and PROM as tolerated -Ambulate in [facility] to d/c when antibiotics and home health arranged Objective Vital signs: Vital Signs Temp Pulse Resp BP Pulse Ox 08/04/17 06:40 97.9 F 88 16 133/80 94 08/04/17 00:19 98.3 F 85 16 129/76 95 08/03/17 21:37 98.7 F 81 16 142/71 94 08/03/17 16:24 97.8 F 73 15 120/71 94 08/03/17 12:13 98.3 F 89 16 144/86 96 Intake and Output 08/03/17 08/03/17 08/04/17 15:59 23:59 07:59 Intake Total 1226 / 1226 270 / 270 Output Total 0 / 0 0 / 0 Balance 1226 / 1226 270 / 270 0 / 0 Intake: IV Fluids 270 / 270 270 / 270 Maxipime 2,000 MG In Water for 20 / 20 20 / 20 inj. (sterile) 20 ML @ 300 mls/ hr IVPB Q12H [facility] Rx#:[id number] Vancocin 1,500 MG In 0.9 % 250 / 250 250 / 250 Sodium Chloride 250 ML @ 167 mls/hr IVPB Q12H [facility] Rx#: [id number] Oral 956 / 956 Output: Wound Drainage 0 / 0 0 / 0 Right Shoulder 0 / 0 0 / 0 Other: Meal Lunch Percent of Meal Consumed 100% # Voids 1 - Labs CBC & BMP: 07/31/17 16:07 08/02/17 16:19 Labs: Abnormal lab results ESR 79 mm/hr (0-10) H 07/31/17 16:07 Sodium 135 mEq/L (136-145) L 07/31/17 16:07 C-Reactive Protein 75 mg/L (Less than 10) H 07/31/17 16:07 Vancomycin Trough 20.2 mcg/mL (10-20) H* 08/04/17 03:52 - VTE Documentation of Mechanical Device: Graduated compression elastic hosiery Consult Discharge Plan - Plan Referrals: Manish Frausto DO [Primary Care Provider] -
[2017-08-04] MEDS: Cefepime HCl 2,000 MG in Water for inj. (sterile) 20 ML 20 ML IVPB SCH ×2 (09:14→20:31)
--- NOTE | 2017-08-04 16:57 | Infectious Disease Progress No ---
Date of Encounter: 08/04/17 Time of Encounter: 16:55 - Assessment and Plan (1) Septic arthritis of shoulder, right Current Visit: Yes Status: Acute Location: Right shoulder. Causative organism unclear. Failed outpatient oral antibiotics. MRI of the right shoulder showed findings consistent with septic glenohumeral joint with possible pyomyositis/myositis and possible early osteomyelitis. Superficial wound cultures 07/29/17 is preliminarily negative. Status post right shoulder arthrocentesis 07/31/[address] Wilhelm in the office. 1 ml of fluid removed and sent for culture (aerobic and anaerobic). Culture is negative. Swab culture of the surgical wound obtained 07/31/17 is negative despite there being gross pus. Status post right shoulder irrigation and debridement. Operative note reviewed. No pus noted in the joint, but did speak with Dr. Wilhelm who states that there appeared to be some cavitation around the previously placed anchors in the shoulder. He recommends continuing treatment for osteomyelitis. Intra-op -cultures not obtained. Clinically, the patient does not appear toxic. Blood cultures drawn to 1516 are no growth to date. Since the shoulder was obviously infected, but the cultures are negative, we will plan to treat for 4-6 weeks with broad-spectrum antibiotics. Continue Vancomycin IV. Pharmacy to dose. Goal trough ~15. Vanc trough 20.2 today. Dose adjusted by pharmacy. Continue Cefepime 2 grams IV Q12H. Duration of treatment depends on the clinical picture, but likely 6 weeks of IV antibiotics. Monitor renal function and for drug toxicity and dose-adjust antibiotics. Consult VAT for PICC line placement. Will need weekly CBC, BUN/Cr, ESR, CRP, and Vanc trough. Will need weekly PICC care per protocol. Follow up with ID 08/21/17 at 0920. Qualifiers: Septic arthritis organism: due to unspecified organism Qualified Code(s): M00.9 - Pyogenic arthritis, unspecified (2) Status post rotator cuff repair Current Visit: Yes Status: Acute Status post rotator cuff repair 06/20/[address] Wilhelm. - Subjective Interval history: Patient seen and examined. No acute events noted overnight. Status post I&D of the right shoulder on . The patient reports minimal pain at the surgical site. States he participated in physical therapy earlier today. Denies any fevers or chills or rigors. Denies any chest pain, shortness of breath, or cough. Denies any nausea, vomiting, diarrhea, constipation. Denies any abdominal pain or urinary complaints. States his appetite is good. Denies oral thrush or new skin lesions. Infect Dis PN-Objective Data - Labs CBC & Chem 7: 07/31/17 16:07 08/02/17 16:19 Labs: Laboratory Results - last 24 hr 08/04/17 03:52 Vancomycin Trough 20.2 H* Cultures: Cultures 07/31/17 19:53 Wound Culture - Final Right Shoulder No growth. 07/31/17 19:53 Anaerobic Culture - Preliminary Right Shoulder At this time, no anaerobic growth is present. The culture will be finalized after 5 days of incubation. 07/31/17 16:07 Blood Culture - Preliminary Peripheral Venipuncture No growth. 07/31/17 16:07 Blood Culture - Preliminary Peripheral Venipuncture No growth. Exam - Constitutional Vitals: Temp Pulse Resp BP Pulse Ox 98.1 F 95 16 119/88 95 08/04/17 12:56 08/04/17 12:56 08/04/17 12:56 08/04/17 12:56 08/04/17 12:56 General appearance: average body habitus, cooperative, no acute distress - Head Head exam: Present: atraumatic, normal inspection, normocephalic - Eye Eye exam: Present: EOMI, normal appearance, PERRL Pupils: Present: normal accommodation - ENT ENT exam: Present: mucous membranes moist - Neck Neck exam: Present: normal inspection - Respiratory Respiratory exam: Present: CTAB. Absent: rales, respiratory distress, rhonchi, wheezes - Cardiovascular Cardiovascular exam: Present: RRR, +S1, +S2 - GI/Abdominal GI/Abdominal exam: Present: normal bowel sounds, soft. Absent: distended, tenderness - Extremities Exam Extremities exam: Present: joint swelling (Minimal, right shoulder.), tenderness (Minimal, anterior right shoulder.). Absent: pedal edema Additional comments: Right shoulder surgical site 2 with Steri-Strip and Band-Aid in place that are clean, dry, and intact. Wound VAC noted to the right anterior shoulder surgical site with scant drainage noted. - Neurological Exam Neurological exam: Present: alert, oriented X3, no focal deficits - Psychiatric Psychiatric exam: Present: normal affect, normal mood - Skin Skin exam: Present: dry, intact, normal color, warm - VTE Documentation of Mechanical Device: Intermittent pneumatic compression device Consult Discharge Plan - Plan Referrals: Manish Frausto DO [Primary Care Provider] - - Attending Attestation I examined this patient and my medical decision-making was reviewed with the Resident Physician. I agree with the documented findings, disposition and treatment plan as described except to the extent set forth below.
[2017-08-05 07:43] LABS: eGFR For African Americans > 60 (> 60); eGFR For Non-African Americans > 60 (> 60)
[2017-08-05] MEDS ORDERED: Lidocaine -MPF 1% 2 ML VIAL INFILT ONE (08:30)
--- NOTE | 2017-08-05 09:16 | Infectious Disease Progress No ---
Date of Encounter: 08/05/17 Time of Encounter: 12:05 - Assessment and Plan (1) Septic arthritis of shoulder, right Current Visit: Yes Status: Acute Location: Right shoulder. Causative organism unclear. Failed outpatient oral antibiotics. MRI of the right shoulder showed findings consistent with septic glenohumeral joint with possible pyomyositis/myositis and possible early osteomyelitis. Superficial wound cultures 07/29/17 is preliminarily negative. Status post right shoulder arthrocentesis 07/31/[address] Wilhelm in the office. 1 ml of fluid removed and sent for culture (aerobic and anaerobic). Culture is negative. Swab culture of the surgical wound obtained 07/31/17 is negative despite there being gross pus. Status post right shoulder irrigation and debridement. Operative note reviewed. No pus noted in the joint, but did speak with Dr. Wilhelm who states that there appeared to be some cavitation around the previously placed anchors in the shoulder. He recommends continuing treatment for osteomyelitis. Intra-op -cultures not obtained. Clinically, the patient does not appear toxic. Blood cultures drawn to 06/30/17 are no growth to date. Since the shoulder was obviously infected, but the cultures are negative, we will plan to treat for 4-6 weeks with broad-spectrum antibiotics. Continue Vancomycin IV. Pharmacy to dose. Goal trough ~15. Vanc trough 20.2 yesterda. Dose adjusted by pharmacy. Continue Cefepime 2 grams IV Q12H. Duration of treatment depends on the clinical picture, but likely 6 weeks of IV antibiotics. Monitor renal function and for drug toxicity and dose-adjust antibiotics. Consult VAT for PICC line placement. Will need weekly CBC, BUN/Cr, ESR, CRP, and Vanc trough. Will need weekly PICC care per protocol. Follow up with ID 08/21/17 at 0920. Qualifiers: Septic arthritis organism: due to unspecified organism Qualified Code(s): M00.9 - Pyogenic arthritis, unspecified (2) Status post rotator cuff repair Current Visit: Yes Status: Acute Status post rotator cuff repair 06/20/[address] Wilhelm. - Subjective Interval history: Patient seen and examined. No acute events noted overnight. Status post I&D of the right shoulder on . The patient reports minimal pain at the surgical site. States he participated in physical therapy earlier today. Denies any fevers or chills or rigors. Denies any chest pain, shortness of breath, or cough. Denies any nausea, vomiting, diarrhea, constipation. Denies any abdominal pain or urinary complaints. States his appetite is good. Denies oral thrush or new skin lesions. Infect Dis PN-Objective Data - Labs CBC & Chem 7: 07/31/17 16:07 08/05/17 06:33 Labs: Laboratory Results - last 24 hr 08/04/17 08/05/17 16:40 06:33 Creatinine 0.75 Est GFR ( Amer) > 60 Est GFR (Non-Af Amer) > 60 Vancomycin Trough 8.2 L Cultures: Cultures 07/31/17 19:53 Wound Culture - Final Right Shoulder No growth. 07/31/17 19:53 Anaerobic Culture - Preliminary Right Shoulder At this time, no anaerobic growth is present. The culture will be finalized after 5 days of incubation. 07/31/17 16:07 Blood Culture - Preliminary Peripheral Venipuncture No growth. 07/31/17 16:07 Blood Culture - Preliminary Peripheral Venipuncture No growth. Exam - Constitutional Vitals: Temp Pulse Resp BP Pulse Ox 98.9 F 96 18 139/79 92 08/05/17 07:06 08/05/17 07:06 08/05/17 07:06 08/05/17 07:06 08/05/17 07:06 General appearance: cooperative, no acute distress, obese - Head Head exam: Present: atraumatic, normal inspection, normocephalic - Eye Eye exam: Present: EOMI, normal appearance, PERRL Pupils: Present: normal accommodation - ENT ENT exam: Present: mucous membranes moist - Neck Neck exam: Present: normal inspection - Respiratory Respiratory exam: Present: CTAB. Absent: rales, respiratory distress, rhonchi, wheezes - Cardiovascular Cardiovascular exam: Present: RRR, +S1, +S2 - GI/Abdominal GI/Abdominal exam: Present: normal bowel sounds, soft. Absent: distended, tenderness - Extremities Exam Extremities exam: Present: joint swelling (Trace, right shoulder). Absent: pedal edema, tenderness Additional comments: Right shoulder lateral and posterior surgical sites with steri-strip and band- aid C/D/I. Anterior shoulder wound with wound VAC intact and sponge well-compressed. No tenderness or erythema or warmth noted. - Neurological Exam Neurological exam: Present: alert, oriented X3, no focal deficits - Psychiatric Psychiatric exam: Present: normal affect, normal mood - Skin Skin exam: Present: dry, intact, normal color, warm - VTE Documentation of Mechanical Device: Intermittent pneumatic compression device Consult Discharge Plan - Plan Referrals: Manish Frausto DO [Primary Care Provider] - Prescriptions: Cefepime HCl/Dextrose, Iso-Osm [Cefepime 2 gm Injection] 2 gm IV Q12H #42 mls Vancomycin [Vancocin] 1,250 mg IV Q12H #42 vial - Attending Attestation I examined this patient and my medical decision-making was reviewed with the Resident Physician. I agree with the documented findings, disposition and treatment plan as described except to the extent set forth below.
[2017-08-05] MEDS: Cefepime HCl 2,000 MG in Water for inj. (sterile) 20 ML 20 ML IVPB SCH (09:24)
--- NOTE | 2017-08-05 12:08 | Physician Discharge Referral ---
Home Health/Hosp Referral Info Transfer to: Home Health - Diagnosis (1) Infection of shoulder Priority: Primary Status: Acute - Respiratory Orders Smoking Cessation: Smoking cessation has been advised. For more information, call the [employer] Quit Line at 3-699-ESHV-NOW. - Dressing/Wound Care Site: Right shoulder Type of Dressing/Treatments w/Frequency: Change incisional wound vac over anterior shoulder MWF. Daily dry dressing changes over posterior and lateral portal sites - Diet/Nutrition Diet/Nutrition Orders: Regular - Activity Activity Orders: Up ad cindy - Services Needed Following services are medically necessary services: Nursing, Occupational Therapy Home Care Orders: Antibiotics administered through PICC line as prescribed ROM and strengthening as tolerated right shoulder - Transfer Medications Prescriptions: Cefepime HCl/Dextrose, Iso-Osm [Cefepime 2 gm Injection] 2 gm IV Q12H #42 mls Vancomycin [Vancocin] 1,250 mg IV Q12H #42 vial Home Medications: Meloxicam [Meloxicam] 15 mg PO DAILY 06/20/17 [History] Cephalexin [Keflex] 500 mg PO BID 07/31/17 [History] Docusate [Colace] 100 mg PO DAILY PRN 07/31/17 [History] HYDROcodone/Acet 5/325 mg [[place] 5-325 mg] 1 - 2 tab PO Q6H PRN 07/31/17 [ History] Ondansetron HCl [Zofran] 4 mg PO Q6H PRN 07/31/17 [History] Sulfamethoxazole/Trimeth DS [Bactrim DS] 1 each PO BID 07/31/17 [History] Cefepime HCl/Dextrose, Iso-Osm [Cefepime 2 gm Injection] 2 gm IV Q12H #42 mls [Rx] Vancomycin [Vancocin] 1,250 mg IV Q12H #42 vial 08/05/17 [Rx] Allergies/Adverse Reactions: 3 Allergy/AdvReac Type Severity Reaction Status Date / Time No Known Allergies Allergy Verified 06/20/17 07:31 Certification: Further, I certify that my clinical findings support that this patient is homebound (i.e. absences from home require considerable and taxing effort and are for medical reasons or congregation services or infrequently or short duration when for other reasons) because: Homebound Reason: Patient requires assistance of a person or device to safely leave home Attestation: My signature below is to certify that this patient is under my care and that I, or nurse practitioner, or a physician's medical claims assistant working with me, has a face-to -face encounter with this patient.
--- NOTE | 2017-08-05 14:25 | Orthopedics Progress Note ---
Date of Encounter: 08/05/17 Time of Encounter: 08:00 - Assessment and Plan (1) Infection of shoulder Current Visit: Yes Status: Acute Subjective Interval history: S: Pain well controlled. Denies f/c/ns. O: AFVSS, Wound and shoulder joint Ctx NGTD GEN: NAD, AAOx3 RUE: Inc c/d/i with wound vac in place No drainage from wound vac No surrounding erythema No pain with short arc ROM A/P: 67 yo M POD#4/5 s/p multiple R shoulder arthroscopic and open I&D for post op wound infection -No plan for repeat I&D -Continue IV Atbx per ID, appreciate ID recs -PICC line prior to d/c -Home health for home antibiotic therapy and wound vac management, wound vac changes MWF -PT for R shoulder - AROM and PROM as tolerated -Ambulate in [facility] to d/c when antibiotics and home health arranged Objective Vital signs: Vital Signs Temp Pulse Resp BP Pulse Ox 08/05/17 12:29 99.8 F H 98 16 145/85 93 08/05/17 07:06 98.9 F 96 18 139/79 92 08/05/17 03:59 98.9 F 100 16 112/70 94 08/05/17 00:11 99.3 F 89 16 115/70 93 08/04/17 20:48 99.5 F 94 18 116/74 96 08/04/17 17:30 98.2 F 108 16 143/84 96 Intake and Output 08/04/17 08/05/17 08/05/17 23:59 07:59 15:59 Intake Total 760 / 760 540 / 540 20 20 Output Total 0 / 0 0 / 0 0 / 0 Balance 760 / 760 540 / 540 20 / 20 Intake: IV Fluids 270 / 270 250 / 250 20 / 20 Maxipime 2,000 MG In Water for 20 / 20 inj. (sterile) 20 ML @ 300 mls/ hr IVPB Q12H [facility] Rx#:[id number] Vancocin 1,500 MG In 0.9 % 250 / 250 250 / 250 Sodium Chloride 250 ML @ 167 mls/hr IVPB Q12H [facility] Rx#: [id number] Oral 490 / 490 290 / 290 Output: Urine 0 / 0 0 / 0 Wound Drainage 0 / 0 Right Shoulder 0 / 0 Right Upper Shoulder 0 / 0 Other: Meal Dinner Lunch Percent of Meal Consumed 75% 95% # Voids 1 - Labs CBC & BMP: 07/31/17 16:07 08/05/17 06:33 Labs: Abnormal lab results ESR 79 mm/hr (0-10) H 07/31/17 16:07 Sodium 135 mEq/L (136-145) L 07/31/17 16:07 C-Reactive Protein 75 mg/L (Less than 10) H 07/31/17 16:07 Vancomycin Trough 8.2 mcg/mL (10-20) L 08/04/17 16:40 - VTE Documentation of Mechanical Device: Intermittent pneumatic compression device Consult Discharge Plan - Plan Referrals: Manish Frausto DO [Primary Care Provider] - Prescriptions: Cefepime HCl/Dextrose, Iso-Osm [Cefepime 2 gm Injection] 2 gm IV Q12H #42 mls Vancomycin [Vancocin] 1,250 mg IV Q12H #42 vial
[2017-08-05] MEDS ORDERED: Cefepime HCl 2,000 MG in Water for inj. (sterile) 20 ML 20 ML IVPB SCH (20:20)
[2017-08-05] MEDS ORDERED: Aminoglycoside Consult 1 EACH MC ONE (21:12)
--- NOTE | 2017-08-08 08:57 | Discharge Summary ---
Date of Encounter: 08/08/17 Time of Encounter: 08:53 - Discharge Diagnosis (1) Infection of shoulder Priority: Primary Status: Acute - Discharge Medications Prescriptions: Cefepime HCl/Dextrose, Iso-Osm [Cefepime 2 gm Injection] 2 gm IV Q12H #42 mls Vancomycin [Vancocin] 1,250 mg IV Q12H #42 vial Home Medications: Meloxicam [Meloxicam] 15 mg PO DAILY 06/20/17 [History] Cephalexin [Keflex] 500 mg PO BID 07/31/17 [History] Docusate [Colace] 100 mg PO DAILY PRN 07/31/17 [History] HYDROcodone/Acet 5/325 mg [[place] 5-325 mg] 1 - 2 tab PO Q6H PRN 07/31/17 [ History] Ondansetron HCl [Zofran] 4 mg PO Q6H PRN 07/31/17 [History] Sulfamethoxazole/Trimeth DS [Bactrim DS] 1 each PO BID 07/31/17 [History] Cefepime HCl/Dextrose, Iso-Osm [Cefepime 2 gm Injection] 2 gm IV Q12H #42 mls [Rx] Vancomycin [Vancocin] 1,250 mg IV Q12H #42 vial 08/05/17 [Rx] Allergies/Adverse Reactions: 3 Allergy/AdvReac Type Severity Reaction Status Date / Time No Known Allergies Allergy Verified 06/20/17 07:31 Date of admission: 07/31/17 16:11 Primary care physician: Manish Frausto, Consults: 07/31/17 12:43 Consult to Infectious Diseases [CONS] Routine Consulting Provider: Infectious Disease Lilian Reason for Consult: Shoulder infection Time Notified: 12:44 Call Completed: Yes 07/31/17 14:09 Consult to Land Economist [CONS] Routine Reason for SW Consult: Arrange for home care for PICC line and wound care 07/31/17 14:10 PICC LINE [Consult to Invasive Line Access Team] [CONS] Routine Reason for Consult: PICC insertion Line Type: PICC 08/02/17 08:38 OT [Consult to Occupational Therapy] [CONS] Routine Comment: Evaluate, develop and implement POC Reason for Consult: s/p R shoulder I&D, AROM and PROM as tolerated 08/05/17 08:30 Consult to Invasive Line Access Team [CONS] Routine Reason for Consult: Picc Line Insertion Line Type: PICC Discharging clinician: Yousuf Wilhelm - Patient Status Disposition: Home Health Service Condition: Good Functional capacity at discharge: independent ambulation Overall status at discharge: patient is progressing back to baseline - Discharge Instructions Instructions: Negative Pressure Wound Therapy (DC) Follow Up With: Manish Frausto DO [Primary Care Provider] - - Diet and Activity Activity: as per physical therapy Diet: advance to your usual diet - Hospital Course Hospital course: Mr. Merino is a 67 year old male who had previously underwent a right arthroscopic rotator cuff repair approximately 5 weeks ago. He developed pain, erythema and swelling over the anterior portal site. He had an I&D performed with expression of purulence in the office but had continued drainage. Cultures were sent from both the intra-articular shoulder joint as well as the wound over the anterior shoulder. He had imaging findings concerning for a septic joint and so was admitted to the hospital for IV antibiotics as well as further irrigation and debridements. On 07/31 and again on 08/01 he underwent arthroscopic irrigation debridement of the shoulder joint as well as open irrigation and debridement of the anterior shoulder wound. There was no gross purulence seen within the shoulder joint at either debridement. The wound was clean after the second debridement. An incisional wound VAC was placed over the anterior shoulder wound and antibiotics were arranged per infectious disease. Cultures were negative throughout the stay. Plan is for 6 weeks of antibiotics through PICC line. - Time Spent with Patient Total time spent providing and/or coordinating discharge services: - VTE Documentation of Mechanical Device: Intermittent pneumatic compression device
== END 2017-08-05 21:13 | disposition home health service (06) | DRG 857 ==
LOC: 3NENU
PROVIDERS: ADMIT Orthopaedic Surgery Sports Medicine; ATTEND Orthopaedic Surgery Sports Medicine